=== PATIENT | female | born 1955 | race Caucasian/White ===

== ENCOUNTER → 2017-11-14 14:55 | Outpatient (CLI) | payer BC, SELFPAY ==
[2017-11-14 16:32] LABS: AST(SGOT) 44 U/L (15-37); Alanine Aminotransfer ALT/SGPT 61 U/L (13-56); Alkaline Phosphatase 67 U/L (45-117); Anion Gap 4 (5-15); BUN 15 mg/dL (7-18); BUN/Creat Ratio 17.1 RATIO (10-20); Calcium,Total 9.1 mg/dL (8.5-10.1); Chloride 104 mmol/L (98-107); Cholesterol 217 mg/dL (200); Creatinine, Serum 0.88 mg/dL (0.55-1.02); EST Glomerular Filtration Rate 70 mL/min (>60); Est Glom Filt Rate - Afr Amer 85 mL/min (>60); Globulin 4.1 g/dL (2.2-4.2); Glucose 99 mg/dL (74-106); High Density Lipoprotein 42 mg/dL; Potassium 4.1 mmol/L (3.5-5.1); Protein, Total 8.1 g/dL (6.4-8.2); Sodium Level 138 mmol/L (136-145); Triglycerides 252 mg/dL; Very Low Density Lipoprotein 50 mg/dL (5-40)
== END ==
PROVIDERS: Family Provider Family Medicine; PCP Family Medicine; Visit Provider Family Medicine
DX: I10 Essential (primary) hypertension (principal); E78.5 Hyperlipidemia, unspecified
CPT/HCPCS: 36415; 80053; 80061

== ENCOUNTER → 2017-12-10 12:43 | Outpatient (CLI) | payer BC, SELFPAY ==
[2017-12-10 14:03] LABS: Hemoglobin A1c 6.9 % (4.2-6.3)
== END ==
PROVIDERS: Family Provider Family Medicine; PCP Family Medicine; Visit Provider Family Medicine
DX: R73.09 Other abnormal glucose (principal)
CPT/HCPCS: 36415; 83036

== ENCOUNTER 2018-01-02 14:47 | Outpatient (RCR) | payer BC, SELFPAY | END 2018-01-24 23:59 | LOC: DC 14:47 | PROVIDERS: Family Provider Family Medicine; PCP Family Medicine; Visit Provider Family Medicine | DX: E11.9 Type 2 diabetes mellitus without complications (principal); Z71.3 Dietary counseling and surveillance; E66.9 Obesity, unspecified; Z68.30 Body mass index [BMI] 30.0-30.9, adult | CPT/HCPCS: 97802; G0108 ==

== ENCOUNTER 2018-02-12 08:36 | Outpatient (RCR) | payer BC, SELFPAY | END 2018-02-23 23:59 | LOC: DC 08:36 | PROVIDERS: Family Provider Family Medicine; PCP Family Medicine; Visit Provider Family Medicine | DX: E66.9 Obesity, unspecified (principal); E11.9 Type 2 diabetes mellitus without complications; Z71.3 Dietary counseling and surveillance; Z68.30 Body mass index [BMI] 30.0-30.9, adult | CPT/HCPCS: 97803 ==

== ENCOUNTER → 2018-02-19 13:45 | Outpatient (CLI) | payer BC, SELFPAY ==
[2018-02-19 15:58] LABS: Hemoglobin A1c 5.8 % (4.2-6.3)
== END ==
PROVIDERS: Family Provider Family Medicine; PCP Family Medicine; Referring Provider Family Medicine; Visit Provider Family Medicine
DX: E11.9 Type 2 diabetes mellitus without complications (principal)
CPT/HCPCS: 36415; 83036

== ENCOUNTER → 2018-11-05 08:56 | Outpatient (CLI) | payer BC, SELFPAY ==
[2018-11-04 14:02] VITALS: BMI 30.2
[2018-11-05 13:11] LABS: ALB/GLOB Ratio 0.9 RATIO (0.9-2.4); AST(SGOT) 27 U/L (15-37); Alanine Aminotransfer ALT/SGPT 43 U/L (13-56); Albumin, Serum 3.7 g/dL (3.2-5.0); Alkaline Phosphatase 63 U/L (45-117); Anion Gap 8 (5-15); BUN 11 mg/dL (7-18); Calcium,Total 9.1 mg/dL (8.5-10.1); Chloride 103 mmol/L (98-107); Cholesterol 189 mg/dL (200); Creatinine, Serum 0.92 mg/dL (0.55-1.02); EST Glomerular Filtration Rate 66 mL/min (>60); Est Glom Filt Rate - Afr Amer 80 mL/min (>60); Globulin 3.9 g/dL (2.2-4.2); Glucose 99 mg/dL (74-106); High Density Lipoprotein 38 mg/dL; Potassium 3.9 mmol/L (3.5-5.1); Protein, Total 7.6 g/dL (6.4-8.2); Sodium Level 141 mmol/L (136-145); Triglycerides 182 mg/dL; Very Low Density Lipoprotein 36 mg/dL (5-40)
== END ==
PROVIDERS: Family Provider Family Medicine; PCP Family Medicine; Visit Provider Family Medicine
DX: E78.5 Hyperlipidemia, unspecified (principal); K76.0 Fatty (change of) liver, not elsewhere classified
CPT/HCPCS: 36415; 80053; 80061

== ENCOUNTER → 2020-01-06 14:00 | Outpatient (CLI) | payer BC, SELFPAY ==
[2020-01-06 13:07] VITALS: BMI 30.2
[2020-01-06 15:55] LABS: AST(SGOT) 46 U/L (15-37); Alanine Aminotransfer ALT/SGPT 81 U/L (13-56); Albumin, Serum 3.9 g/dL (3.2-5.0); Alkaline Phosphatase 62 U/L (45-117); Anion Gap 7 (5-15); BUN 12 mg/dL (7-18); BUN/Creat Ratio 13.6 RATIO (10-20); Calcium,Total 9.2 mg/dL (8.5-10.1); Chloride 103 mmol/L (98-107); Cholesterol 217 mg/dL (200); Creatinine, Serum 0.88 mg/dL (0.55-1.02); EST Glomerular Filtration Rate 69 mL/min (>60); Est Glom Filt Rate - Afr Amer 84 mL/min (>60); Globulin 3.8 g/dL (2.2-4.2); Glucose 88 mg/dL (74-106); High Density Lipoprotein 39 mg/dL; Potassium 4.2 mmol/L (3.5-5.1); Protein, Total 7.7 g/dL (6.4-8.2); Sodium Level 139 mmol/L (136-145); Triglycerides 216 mg/dL; Uric Acid 9.8 mg/dL (2.6-6.0); Very Low Density Lipoprotein 43 mg/dL (5-40)
== END ==
PROVIDERS: PCP Family Medicine; Referring Provider Family Medicine; Visit Provider Family Medicine
DX: K76.0 Fatty (change of) liver, not elsewhere classified (principal); E78.5 Hyperlipidemia, unspecified; M19.90 Unspecified osteoarthritis, unspecified site
CPT/HCPCS: 36415; 80053; 80061; 84550

== ENCOUNTER → 2020-01-27 12:05 | Outpatient (CLI) | payer BC, SELFPAY ==
[2020-01-06 13:07] VITALS: BMI 30.2
--- NOTE | 2020-01-27 12:05 | BI_ITS ---
MAMMOGRAPHY - BILATERAL SCREENING REASON FOR EXAM: Female, 64 years old. Routine annual screening examination. PERTINENT HISTORY: Non-contributory. TECHNIQUE: Digital bilateral breast rodrigo (3D mammographic acquisition) in the CC and MLO projections. 2-D mediolateral oblique (MLO) and craniocaudad (CC) views of both breasts were obtained. CAD: Full Field Digital Mammography with Computer Added Detection was performed. COMPARISON: No comparison mammograms available at this time. If any prior films become available, an addendum to this report can be generated. FINDINGS: Breast Composition: There are scattered areas of fibroglandular density. There are no dominant masses or suspicious calcifications. Multiple small well-defined nodules are seen in the upper outer quadrant of the right breast. Central notch is seen suggestive of a small lymph nodes. Similar appearing nodules are also seen in the axillary region of the left breast. Correlation with ultrasound is recommended for further evaluation. No other significant abnormalities are identified. BI/SCREEN MAMM (CAD) W/RODRIGO BILAT IMPRESSION: Findings suggestive of a benign appearing lymph nodes in the upper outer aspects of both breasts as described. Correlation with ultrasound is recommended for further evaluation. ASSESSMENT CATEGORY: BIRADS Category 0: Incomplete. Need additional imaging evaluation. A letter regarding these results will be sent to the patient by the facility within 30 days. Approximately 10% of breast cancers are not detected by mammography. A normal mammogram should not delay biopsy of a clinically suspicious abnormality. [id number] Electronically Signed: Ziyad Mckinley, at 13:00 EDT , Service support ,
== END ==
PROVIDERS: PCP Family Medicine; Referring Provider Family Medicine; Visit Provider Family Medicine
DX: Z12.31 Encounter for screening mammogram for malignant neoplasm of breast (principal)
CPT/HCPCS: 77063; 77067

== ENCOUNTER → 2020-02-09 11:42 | Outpatient (CLI) | payer BC, SELFPAY ==
[2020-01-06 13:07] VITALS: BMI 30.2
--- NOTE | 2020-02-09 13:18 | US_ITS ---
STUDY: ULTRASOUND BREAST - RIGHT REASON FOR EXAM: Female, 64 years old. Abnormal screening mammogram. TECHNIQUE: Axial and longitudinal images of the RIGHT breast were performed with a high resolution ultrasound transducer. # OF IMAGES: 171 COMPARISON: Comparison is made with prior study dated 01/27/2020. FINDINGS: RIGHT Breast: Multiple small benign appearing lymph nodes are seen in the right axillary region and upper outer quadrant of the right breast noted the largest measures 6 mm x 7 mm x 3 mm. IMPRESSION: Multiple small benign appearing axillary lymph nodes. ASSESSMENT CATEGORY: BIRADS Category 2: Benign. A letter regarding these results will be sent to the patient by the facility within 30 days. Electronically Signed: Ziyad Mckinley, at 10:08 EDT , Service support , STUDY: ULTRASOUND BREAST - LEFT REASON FOR EXAM: Female, 64 years old. Abnormal screening mammogram. TECHNIQUE: Axial and longitudinal images of the LEFT breast were performed with a high resolution ultrasound transducer. # OF IMAGES: 171 COMPARISON: Comparison is made with prior mammogram dated 01/27/2020. FINDINGS: LEFT Breast: Multiple small axillary lymph nodes are seen. The largest measures 1.1 cm x 0.9 cm x 0.4 cm. US/Breast Limited Unilateral IMPRESSION: Multiple small benign-appearing axillary lymph nodes. ASSESSMENT CATEGORY: BIRADS Category 2: Benign. A letter regarding these results will be sent to the patient by the facility within 30 days. Electronically Signed: Ziyad Mckinley, at 10:08 EDT , Service support ,
[2020-02-09 15:43] LABS: Uric Acid 5.2 mg/dL (2.6-6.0)
== END ==
PROVIDERS: PCP Family Medicine; Referring Provider Family Medicine; Visit Provider Family Medicine
DX: N63.21 Unspecified lump in the left breast, upper outer quadrant (principal); N63.11 Unspecified lump in the right breast, upper outer quadrant
CPT/HCPCS: 36415; 76641; 76642; 84550

== ENCOUNTER → 2020-03-16 15:14 | Outpatient (CLI) | payer BC, SELFPAY ==
[2020-03-16 14:39] VITALS: BMI 29.2
[2020-03-16 17:17] LABS: ALB/GLOB Ratio 0.9 RATIO (0.9-2.4); AST(SGOT) 66 U/L (15-37); Alanine Aminotransfer ALT/SGPT 122 U/L (13-56); Albumin, Serum 3.8 g/dL (3.2-5.0); Alkaline Phosphatase 63 U/L (45-117); Anion Gap 3 (5-15); BUN 12 mg/dL (7-18); BUN/Creat Ratio 10.6 RATIO (10-20); Calcium,Total 9.9 mg/dL (8.5-10.1); Chloride 102 mmol/L (98-107); Creatinine, Serum 1.13 mg/dL (0.55-1.02); EST Glomerular Filtration Rate 52 mL/min (>60); Est Glom Filt Rate - Afr Amer 63 mL/min (>60); Globulin 4.2 g/dL (2.2-4.2); Glucose 88 mg/dL (74-106); Potassium 3.9 mmol/L (3.5-5.1); Sodium Level 139 mmol/L (136-145)
== END ==
PROVIDERS: PCP Family Medicine; Referring Provider Nurse Practitioner Family; Visit Provider Nurse Practitioner Family
DX: R79.89 Other specified abnormal findings of blood chemistry (principal)
CPT/HCPCS: 36415; 80053

== ENCOUNTER → 2020-04-19 08:58 | Outpatient (CLI) | payer BC, SELFPAY ==
[2020-03-16 14:39] VITALS: BMI 29.2
[2020-04-19 12:22] LABS: ALB/GLOB Ratio 0.9 RATIO (0.9-2.4); AST(SGOT) 48 U/L (15-37); Alanine Aminotransfer ALT/SGPT 98 U/L (13-56); Albumin, Serum 3.6 g/dL (3.2-5.0); Alkaline Phosphatase 64 U/L (45-117); Anion Gap 4 (5-15); BUN 12 mg/dL (7-18); BUN/Creat Ratio 11.8 RATIO (10-20); Calcium,Total 9.3 mg/dL (8.5-10.1); Chloride 105 mmol/L (98-107); Creatinine, Serum 1.02 mg/dL (0.55-1.02); EST Glomerular Filtration Rate 58 mL/min (>60); Est Glom Filt Rate - Afr Amer 71 mL/min (>60); Globulin 3.8 g/dL (2.2-4.2); Glucose 130 mg/dL (74-106); Potassium 3.7 mmol/L (3.5-5.1); Protein, Total 7.4 g/dL (6.4-8.2); Sodium Level 139 mmol/L (136-145)
== END ==
PROVIDERS: PCP Family Medicine; Referring Provider Nurse Practitioner Family; Visit Provider Nurse Practitioner Family
DX: K76.0 Fatty (change of) liver, not elsewhere classified (principal)
CPT/HCPCS: 36415; 80053

== ENCOUNTER → 2020-07-27 14:29 | Outpatient (CLI) | payer BC, SELFPAY ==
[2020-07-27 13:53] VITALS: BMI 29.2
[2020-07-27 17:28] LABS: ALB/GLOB Ratio 1.1 RATIO (0.9-2.4); AST(SGOT) 44 U/L (15-37); Alanine Aminotransfer ALT/SGPT 83 U/L (13-56); Alkaline Phosphatase 73 U/L (45-117); Anion Gap 6 (5-15); BUN 12 mg/dL (7-18); BUN/Creat Ratio 13.6 RATIO (10-20); Calcium,Total 9.5 mg/dL (8.5-10.1); Chloride 104 mmol/L (98-107); Creatinine, Serum 0.88 mg/dL (0.55-1.02); EST Glomerular Filtration Rate 69 mL/min (>60); Est Glom Filt Rate - Afr Amer 84 mL/min (>60); Globulin 3.8 g/dL (2.2-4.2); Glucose 90 mg/dL (74-106); Protein, Total 7.8 g/dL (6.4-8.2); Sodium Level 140 mmol/L (136-145)
== END ==
PROVIDERS: PCP Family Medicine; Referring Provider Family Medicine; Visit Provider Family Medicine
DX: I10 Essential (primary) hypertension (principal)
CPT/HCPCS: 36415; 80053

== ENCOUNTER → 2020-08-03 15:58 | Outpatient (CLI) | payer BC, SELFPAY ==
--- NOTE | 2020-08-03 | LES_PTH ---
PATIENT: MOI BLACK LOC: [facility] U#:[id number] AGE/SX: 69/F ROOM: RE08/03/[address]: Dr. Oscar Ordoñez DO : 1955 BED: DIS: SPEC #: [id number] RECD: 08/03/20 17:02 STATUS: PATO MO #: [id number] TICO: 08/03/20 00:[address]: Oscar Ordoñez DEPT: SURGICAL PATHOLOGY RECD BY: Elliott Vallecillo Tissues: Skin of foot, NOS Procedures: Surgery Specimen Level IV HEADER OPERATION: Skin excision PRE-OP DIAGNOSIS: Left great toe skin lesion TISSUE SUBMITTED: Left great toe skin lesion MICROSCOPIC DIAGNOSIS Left great toe skin lesion, excision: Extensive hyperkeratosis, parakeratosis and epithelial hyperplasia. Negative for malignancy. SJ:andrew 08/05/2020 COMMENT Correlation with clinical findings and appropriate follow up are necessary. Case has been reviewed in consultation with Dr. Walker who concurs with the above diagnosis. IDC:AM MICROSCOPIC DESCRIPTION Slides are reviewed. GROSS DESCRIPTION Received in fixative is one container labeled with the patient's name and designated left great toe. The specimen consists of a light rose shave biopsy of skin measuring 0.7 cm in diameter and <0.1 cm in thickness. The specimen is inked, serially sectioned and totally submitted in one cassette. / KIM:andrew 08/04/20 TC:3 CPT: 25605
== END ==
PROVIDERS: PCP Family Medicine; Referring Provider Family Medicine; Visit Provider Family Medicine
DX: L98.9 Disorder of the skin and subcutaneous tissue, unspecified (principal)
CPT/HCPCS: 88305

== ENCOUNTER → 2021-01-26 10:53 | Outpatient (CLI) | payer BC, SELFPAY ==
[2021-01-26 12:28] LABS: AST(SGOT) 87 U/L (15-37); Alanine Aminotransfer ALT/SGPT 156 U/L (13-56); Albumin, Serum 3.8 g/dL (3.2-5.0); Alkaline Phosphatase 65 U/L (45-117); Bilirubin, Direct 0.13 mg/dL (0.00-0.30); Globulin 3.8 g/dL (2.2-4.2); Protein, Total 7.6 g/dL (6.4-8.2); Uric Acid 6.4 mg/dL (2.6-6.0)
== END ==
PROVIDERS: PCP Family Medicine; Referring Provider Family Medicine; Visit Provider Family Medicine
DX: K76.0 Fatty (change of) liver, not elsewhere classified (principal); M10.9 Gout, unspecified
CPT/HCPCS: 36415; 80076; 84550

== ENCOUNTER → 2021-12-15 | Outpatient (CLI) | payer BC, SELFPAY ==
--- NOTE | 2021-12-15 14:57 | RAD_ITS ---
EXAM: XR LUMBOSACRAL SPINE, 2 OR 3 VIEWS CLINICAL INDICATION: Low back pain TECHNIQUE: Frontal and lateral views of the lumbar spine and sacrum. This report was created using [employer] report generation technology. COMPARISON: None. FINDINGS: VERTEBRAE: Multilevel bilateral vertebral facet arthropathy in the lower lumbar spine. Preserved vertebral body height. No fracture. No spondylolisthesis. Preservation of the normal lumbar lordosis. DISC SPACES: Mild disc space narrowing L5-S1. VASCULATURE: Diffuse aortic calcifications. GASTROINTESTINAL TRACT: Unremarkable as visualized. Included bowel gas pattern is non-obstructive. OTHER FINDINGS: Small calcified leiomyoma. RAD/Lumbar Spine 2 or 3 Views IMPRESSION: 1. Mild disc space narrowing L5-S1. 2. Multilevel bilateral vertebral facet arthropathy in the lower lumbar spine. Electronically Signed: Liam Gonzalez MD at 0:21 EDT ,
--- NOTE | 2021-12-15 14:57 | RAD_ITS ---
EXAM: XR LEFT KNEE COMPLETE, 4 OR MORE VIEWS CLINICAL INDICATION: Left knee pain. TECHNIQUE: Four or more views of the left knee. This report was created using [employer] report generation technology. COMPARISON: None. FINDINGS: BONES/JOINTS: Moderate medial left knee joint narrowing. No acute fracture. No subluxation. Normal alignment. No sclerotic or destructive changes observed. SOFT TISSUES: Unremarkable. No soft tissue swelling or gas. No radiopaque foreign body. RAD/Knee 4 or More Views IMPRESSION: Moderate medial left knee joint narrowing. Electronically Signed: Liam Gonzalez MD at 0:21 EDT ,
--- NOTE | 2021-12-15 14:57 | RAD_ITS ---
EXAM: XR LEFT HIP WITH PELVIS WHEN PERFORMED, 4 OR MORE VIEWS CLINICAL INDICATION: Hip pain. TECHNIQUE: Four or more views of the left hip with pelvis when performed. This report was created using [employer] report generation technology. COMPARISON: None. FINDINGS: BONES/JOINTS: Normal left hip. No displaced fracture. No destructive or sclerotic lesions. Note that overlapping bowel shadows may however obscure fine detail. Sacroiliac joint is unremarkable. No widening of the pubic symphysis. SOFT TISSUES: Small calcified leiomyoma in the pelvis. No soft tissue swelling or gas. RAD/HIP, UNI W/ Pelvis 2-3 Views IMPRESSION: Normal left hip. Electronically Signed: Liam Gonzalez MD at 0:19 EDT ,
== END | disposition home or self-care (01) ==
LOC: MTRAD 14:57
PROVIDERS: PCP Family Medicine; Referring Provider Physician Assistant; Visit Provider Physician Assistant
DX: M25.552 Pain in left hip (principal); M25.562 Pain in left knee; M54.50 Low back pain, unspecified
CPT/HCPCS: 72100; 73502; 73503; 73564

== ENCOUNTER → 2022-03-14 | Outpatient (CLI) | payer BC, SELFPAY ==
[2022-03-14 17:59] LABS: ALB/GLOB Ratio 0.9 RATIO (0.9-2.4); AST(SGOT) 90 U/L (15-37); Alanine Aminotransfer ALT/SGPT 117 U/L (13-56); Albumin, Serum 3.6 g/dL (3.2-5.0); Alkaline Phosphatase 68 U/L (45-117); Anion Gap 8 (5-15); BUN 14 mg/dL (7-18); BUN/Creat Ratio 11.6 RATIO (10-20); Calcium,Total 9.4 mg/dL (8.5-10.1); Chloride 103 mmol/L (98-107); Cholesterol 243 mg/dL (200); Creatinine, Serum 1.21 mg/dL (0.55-1.02); EST Glomerular Filtration Rate 48 mL/min (>60); Est Glom Filt Rate - Afr Amer 58 mL/min (>60); Glucose 139 mg/dL (74-106); High Density Lipoprotein 36 mg/dL; Potassium 3.8 mmol/L (3.5-5.1); Protein, Total 7.6 g/dL (6.4-8.2); Sodium Level 138 mmol/L (136-145); Thyroid Stim Hormone (TSH) 1.26 uIU/mL (0.358-3.74); Triglycerides 405 mg/dL
== END | disposition home or self-care (01) ==
LOC: BIMLAB 16:13
PROVIDERS: PCP Family Medicine; Referring Provider Family Medicine; Visit Provider Family Medicine
DX: E11.9 Type 2 diabetes mellitus without complications (principal); L65.9 Nonscarring hair loss, unspecified
CPT/HCPCS: 36415; 80053; 80061; 84443

== ENCOUNTER → 2022-06-19 | Outpatient (CLI) | payer BC, SELFPAY ==
[2022-06-19 12:44] LABS: ALB/GLOB Ratio 0.9 RATIO (0.9-2.4); AST(SGOT) 64 U/L (15-37); Alanine Aminotransfer ALT/SGPT 98 U/L (13-56); Albumin, Serum 3.9 g/dL (3.2-5.0); Alkaline Phosphatase 61 U/L (45-117); Anion Gap 7 (5-15); BUN 11 mg/dL (7-18); BUN/Creat Ratio 11.8 RATIO (10-20); Calcium,Total 9.7 mg/dL (8.5-10.1); Chloride 102 mmol/L (98-107); Creatinine, Serum 0.93 mg/dL (0.55-1.02); EST Glomerular Filtration Rate 64 mL/min (>60); Est Glom Filt Rate - Afr Amer 78 mL/min (>60); Globulin 4.4 g/dL (2.2-4.2); Glucose 129 mg/dL (74-106); Potassium 4.2 mmol/L (3.5-5.1); Protein, Total 8.3 g/dL (6.4-8.2); Sodium Level 138 mmol/L (136-145)
[2022-06-19 13:04] LABS: Hemoglobin A1c 7.7 % (3.8-5.6)
== END | disposition home or self-care (01) ==
LOC: BIMLAB 09:38
PROVIDERS: PCP Family Medicine; Referring Provider Family Medicine; Visit Provider Family Medicine
DX: R73.03 Prediabetes (principal)
CPT/HCPCS: 36415; 80053; 83036

== ENCOUNTER → 2023-04-11 | Outpatient (CLI) | payer MEDICARE, BC, SELFPAY ==
[2023-04-11 12:48] LABS: ALB/GLOB Ratio 0.9 RATIO (0.9-2.4); AST(SGOT) 39 U/L (15-37); Alanine Aminotransfer ALT/SGPT 57 U/L (13-56); Albumin, Serum 3.8 g/dL (3.2-5.0); Alkaline Phosphatase 60 U/L (45-117); Anion Gap 6 (5-15); BUN 16 mg/dL (7-18); BUN/Creat Ratio 15.7 RATIO (10-20); Calcium,Total 9.8 mg/dL (8.5-10.1); Chloride 103 mmol/L (98-107); Cholesterol 241 mg/dL (200); Creatinine, Serum 1.02 mg/dL (0.55-1.02); EST Glomerular Filtration Rate 58 mL/min (>60); Est Glom Filt Rate - Afr Amer 70 mL/min (>60); Globulin 4.4 g/dL (2.2-4.2); Glucose 110 mg/dL (74-106); High Density Lipoprotein 42 mg/dL; Potassium 4.7 mmol/L (3.5-5.1); Protein, Total 8.2 g/dL (6.4-8.2); Sodium Level 137 mmol/L (136-145); Triglycerides 258 mg/dL; Very Low Density Lipoprotein 52 mg/dL (5-40)
== END | disposition home or self-care (01) ==
PROVIDERS: PCP Family Medicine; Referring Provider Family Medicine; Visit Provider Family Medicine
DX: E78.5 Hyperlipidemia, unspecified (principal); I10 Essential (primary) hypertension
CPT/HCPCS: 36415; 80053; 80061

== ENCOUNTER → 2023-04-24 | Outpatient (CLI) | payer MEDICARE, BC, SELFPAY ==
--- NOTE | 2023-04-24 13:40 | BI_ITS ---
MAMMOGRAPHY - BILATERAL SCREENING REASON FOR EXAM: Female, 67 years old. Routine annual screening examination. PERTINENT HISTORY: Non-contributory. TECHNIQUE: Digital bilateral breast rodrigo (3D mammographic acquisition) in the CC and MLO projections. 2-D mediolateral oblique (MLO) and craniocaudad (CC) views of both breasts were obtained. CAD: Full Field Digital Mammography with Computer Added Detection was performed. COMPARISON: Comparison is made with prior examination January 27, 2020. FINDINGS: Breast Composition: There are scattered areas of fibroglandular density. There are no dominant masses or suspicious calcifications. Stable small well-defined nodules seen in the upper outer quadrant of the right breast. Similar appearing smaller nodules are also seen in the axillary region of the left breast. These were demonstrated to be small lymph nodes on prior sonogram. No other significant abnormalities are identified. There has been no significant change since the prior study. BI/SCRN MAMM (CAD)W/RODRIGO BILAT IMPRESSION: Stable bilateral screening mammogram. Yearly follow-up mammogram recommended. (A) ASSESSMENT CATEGORY: BIRADS Category 2: Benign. A letter regarding these results will be sent to the patient by the facility within 30 days. Approximately 10% of breast cancers are not detected by mammography. A normal mammogram should not delay biopsy of a clinically suspicious abnormality. [id number] Electronically Signed: Ziyad Mckinley MD at 11:00 EST ,
== END | disposition home or self-care (01) ==
LOC: OPBI 13:40
PROVIDERS: PCP Family Medicine; Referring Provider Family Medicine; Visit Provider Family Medicine
DX: Z12.31 Encounter for screening mammogram for malignant neoplasm of breast (principal)
CPT/HCPCS: 77063; 77067

== ENCOUNTER → 2024-01-28 | Outpatient (CLI) | payer MEDICARE, BC, SELFPAY ==
[2024-01-28 16:54] LABS: ALB/GLOB Ratio 0.9 RATIO (0.9-2.4); AST(SGOT) 30 U/L (15-37); Alanine Aminotransfer ALT/SGPT 44 U/L (13-56); Albumin, Serum 3.6 g/dL (3.2-5.0); Alkaline Phosphatase 60 U/L (45-117); Anion Gap 6 (5-15); BUN 12 mg/dL (7-18); BUN/Creat Ratio 12.9 RATIO (10-20); Calcium,Total 9.8 mg/dL (8.5-10.1); Chloride 104 mmol/L (98-107); Cholesterol 247 mg/dL (200); Creatinine, Serum 0.93 mg/dL (0.55-1.02); EST Glomerular Filtration Rate 64 mL/min (>60); Est Glom Filt Rate - Afr Amer 78 mL/min (>60); Globulin 3.8 g/dL (2.2-4.2); Glucose 133 mg/dL (74-106); High Density Lipoprotein 40 mg/dL; Protein, Total 7.4 g/dL (6.4-8.2); Sodium Level 137 mmol/L (136-145); Triglycerides 381 mg/dL; Very Low Density Lipoprotein 76 mg/dL (5-40)
== END | disposition home or self-care (01) ==
LOC: BIMLAB 15:16
PROVIDERS: PCP Family Medicine; Visit Provider Family Medicine
DX: I10 Essential (primary) hypertension (principal)
CPT/HCPCS: 36415; 80053; 80061

== ENCOUNTER → 2025-05-11 | Outpatient (CLI) | payer MEDICARE, BC, SELFPAY ==
[2025-05-11 12:33] LABS: AST(SGOT) 77 U/L (<=31); Alanine Aminotransfer ALT/SGPT 104 U/L (<=34); Albumin, Serum 4.3 g/dL (3.4-4.8); Alkaline Phosphatase 73 U/L (35-104); Anion Gap 11 (5-15); BUN 8 mg/dL (4-19); BUN/Creat Ratio 9.7 RATIO (10-20); Calcium,Total 9.8 mg/dL (7.6-11.0); Carbon Dioxide 27.0 mmol/L (21.0-32.0); Chloride 99 mmol/L (98-108); Cholesterol 200 mg/dL (<=200); Globulin 3.5 g/dL (2.2-4.2); Glucose 161 mg/dL (70-99); Low Density Lipoprotein Calc. 118 mg/dL; Potassium 3.9 mmol/L (3.3-5.1); Triglycerides 235 mg/dL; Uric Acid 4.4 mg/dL (2.6-6.0); Very Low Density Lipoprotein 47 mg/dL (5-40); cholesterol:hdl ratio screen 4.93
== END | disposition home or self-care (01) ==
LOC: MTLAB 09:48
PROVIDERS: PCP Family Medicine; Referring Provider Family Medicine; Visit Provider Family Medicine
DX: M10.9 Gout, unspecified (principal); E11.9 Type 2 diabetes mellitus without complications
CPT/HCPCS: 80053; 80061; 83036; 84550

== ENCOUNTER → 2025-05-26 | Outpatient (CLI) | payer MEDICARE, BC, SELFPAY ==
--- NOTE | 2025-05-26 08:45 | US_ITS ---
PROCEDURE: BREAST LIMITED UNILATERAL 05/26/2025 REASON FOR EXAM: F, Age 69 y/o , BREAST LUMP Right breast palpable mass. Inconclusive mammogram. Right breast masses. Evaluate. COMPARISON: Mammogram studies dated 05/26/2025 and 04/24/2023. TECHNIQUE: Procedure Code: USBRSTLIMIT Modality: US Procedure: BREAST LIMITED UNILATERAL FINDINGS: There is a solid, hypoechoic, heterogeneous, spiculated appearing mass in the right breast extending from the 11 o'clock to 12 o'clock position, 6 cm from nipple measuring 3.3 x 3.1 x 2.7 cm. This mass does produce posterior shadowing. The mass does correlate to the palpable abnormality and the mass seen on the mammogram. The mass is taller than it is wide. The mass is highly worrisome for malignancy. Biopsy is warranted. There is a solid hypoechoic mass in the right breast at the 10 o'clock, 11 cm from nipple position measuring 10 x 7 x 6 mm. This has a small echogenic component. The mass is most compatible with an intramammary lymph node and does correlate to a mass seen on the mammogram. The cortex is thick. There is blood flow to the mass. The mass appears to represent an intramammary lymph node that possibly has tumor within it. A biopsy is warranted. There is a hypoechoic mass in the right breast at the 11 o'clock, 11 cm from the nipple position measuring 4 x 3 x 3 mm. This has an echogenic component. There is blood flow to the mass. It is most compatible with an intramammary lymph node and does correlate to a mass seen on the mammogram. If either of the other 2 areas biopsied are positive for malignancy, this mass should also be removed at the time of surgery. US/Breast Limited Unilateral IMPRESSION: There is a malignant-appearing mass and an abnormal appearing intramammary lymp h node and a smaller more benign-appearing intramammary lymph node. Biopsy is warranted as described above. BI-RADS 5: HIGHLY SUGGESTIVE OF MALIGNANCY. RECOMMENDATION: Biopsy Recommended Reading Location: [id number]
--- NOTE | 2025-05-26 09:00 | BI_ITS ---
EXAM: DIAG MAMM W/CAD, BILAT N/A CLINICAL HISTORY: F, Age 69 y/o , BREAST MASS right breast palpable mass which she noted 5 weeks ago. She does have a maternal aunt who was diagnosed with breast cancer. TECHNIQUE: Procedure Code: [id number] Modality: MG Procedure: DIAG MAMM W/CAD, BILAT. COMPARISON: Prior exam(s) dated 04/24/2023 and 01/27/2020. FINDINGS: TISSUE DENSITY: There are scattered areas of fibroglandular density. Bilateral Breast Mammographic Findings: There is a 2.8 x 4.0 cm dense, irregularly marginated mass in the superior, slightly outer aspect of the right breast which does correlate to the palpable abnormality. Further workup with ultrasound is indicated. There are several masses in the superior outer aspect of the right breast which appear to represent lymph nodes. 1 of which is larger when compared to the prior exam. This larger lymph node measures 12 mm. Further workup with ultrasound will be performed. Benign round calcifications and vascular calcifications are seen in the right breast. Benign-appearing intramammary lymph nodes are seen in the superior outer aspect of the left breast and are similar when compared to the prior studies. Benign vascular calcifications and round microcalcifications are seen in the left breast. No suspicious masses, suspicious cluster of microcalcifications, architectural distortion or secondary sign of malignancy is identified in the left breast. BI/DIAG MAMM W/CAD, BILAT IMPRESSION: There are masses seen in the right breast which will be further worked up ultra sound. The largest of which does correlate to the new palpable abnormality. OVERALL FINAL ASSESSMENT BI-RADS 0: INCOMPLETE - NEED ADDITIONAL IMAGING EVALUATION. RECOMMENDATION: Ultrasound Recommended Additional Recommendation none A letter with findings and recommendations will be mailed to the patient. Reading Location: [id number]
--- OUTSIDE RECORDS SUMMARY | 2025-05-26 09:02 | XMS RPT_ITS | CCD ---
Author Organization [facility] Care Team Providers Care Gastroenterology Teacher Name Role Phone Dr. Oscar Ordoñez Primary Care Provider [phone] Dr. Oscar Ordoñez Referring Provider [phone] LB Vasquez Attending Provider Unavail Dr. Oscar Burgos Attending Provider [phone] Dr. Oscar Ordoñez Primary Care Provider [phone] Dr. Oscar Ordoñez Attending Provider [phone] Dr. Oscar Ordoñez Referring Provider [phone] Dr. Oscar Ordoñez Primary Care Provider [phone] Dr. Oscar Ordoñez Attending Provider [phone] Dr. Oscar Ordoñez Referring Provider [phone] Dr. Oscar Ordoñez DO Primary Care Provider Dr. Oscar Ordoñez DO Attending Provider [phone] [phone] Dr. Oscar Ordoñez DO Referring Provider [phone] [phone] Oscar Ordoñez Attending Unavailable Oscar Ordoñez Referring Unavailable Oscar Ordoñez Primary Care Unavailable Oscar Ordoñez Referring Unavailable Oscar Ordoñez Primary Care Unavailable Judith Bill Attending Unavailable Oscar Ordoñez Attending Unavailable Oscar Ordoñez Primary Care Unavailable Oscar Ordoñez Referring Unavailable Oscar Ordoñez Primary Care Unavailable Oscar Ordoñez Attending Unavailable Allergies Allergy Classification Reported Allergen(s) Allergy Type Date of Onset Reaction(s) Facility (7 sources) Sulfonamides (Antibiotic); Translations: [Sulfa (Sulfonamide Antibiotics)] Allergy to substance 12-15-2021 [facility] Medications Current Medications Medication Drug Class(es) Dates Sig (Normalized) Sig (Original) cetrizine (6 sources) Start: 11-14-2017 cetrizine Acti ve PO November 13, 2017 11:00pm Start: 11-14-2017 cetrizine Acti ve PO November 14, 2017 12:00am hydroCHLOROthiazide 25 mg / lisinopril 20 mg oral tablet (20 sources) Thiazide Diuretic, Angiotensin Converting Enzyme Inhibitor Start: 11-14-2017 End: 03-24-2024 Lisinopril-Hydrochlorothiazi de 20-25 mg tablet Active 1 {tbl} PO DAILY March 24, 2024 8:30am Start: 11-14-2017 End: 03-26-2023 take 1 tablet by mouth once daily Lisinopril-Hydrochlorothiazide Discontin ued 1 TABLET PO daily March 14, 2022 2:50pm March 26, 2023 10:52am metFORMIN hydrochloride 500 mg oral tablet (20 sources) Biguanide Start: 12-10-2017 End: 03-24-2024 take 1 tablet by mouth once daily Metformin 500 mg tablet Active 500 mg PO DAILY March 24, 2024 8:30am metroNIDAZOLE 7.5 mg/ml topical cream (20 sources) Nitroimidazole Antimicrobial Start: 11-11-2024 Metronidazole 0.75 % cream Active 1 NMA TOPICAL TWICE A DAY November 11, 2024 1:05pm Start: 09-25-2022 End: 11-11-2024 Metronidazole 0.75 % cream D iscontinued 1 NMA TOPICAL TWICE A DAY September 25, 2022 11:18am November 11, 2024 1:05pm Start: 01-26-2021 End: 09-25-2022 Metronidazole 0.75 % cream D iscontinued 1 NMA TOPICAL TWICE A DAY January 26, 2021 10:12am September 25, 2022 11:21am Start: 01-06-2020 End: 01-26-2021 Metronidazole 0.75 % cream D iscontinued 1 NMA TOPICAL TWICE A DAY January 06, 2020 1:32pm January 26, 2021 10:14am Start: 11-04-2018 End: 01-06-2020 Metronidazole 0.75 % cream D iscontinued 1 NMA TOPICAL TWICE A DAY November 04, 2018 12:00am January 06, 2020 1:32pm Start: 11-04-2018 End: 09-25-2022 Metronidazole Discontinued 1 APPLIC TOPICAL TWICE A DAY January 26, 2021 9:12am September 25, 2022 10:21am rosuvastatin calcium 10 mg oral tablet (2 sources) HMG-CoA Reductase Inhibitor Start: 01-29-2024 End: 07-21-2024 take 1 tablet by mouth once daily Rosuvastatin 10 mg tablet Active 10 mg PO daily July 21, 2024 11:02am vitamin e 90 mg oral capsule (6 sources) Start: 11-14-2017 take 2 capsules by mouth once daily Vitamin E 200 unit capsule Active 400 U PO daily November 14, 2017 12:00am Start: 11-14-2017 take 400 [IU] by mouth once da serafin Vitamin E Active 400 UNIT PO daily November 13, 2017 11:00pm Completed/Discontinued Medications Medication Drug Class(es) Dates Sig (Normalized) Sig (Original) allopurinol 100 mg oral tablet (20 sources) Xanthine Oxidase Inhibitor Start: 03-16-2020 End: 03-14-2022 take 1 tablet by mouth once daily Allopurinol 100 mg tablet Discontinued 100 mg PO DAILY September 19, 2020 9:08am January 26, 2021 10:14am Start: 01-07-2020 End: 03-16-2020 take 1 tablet by mouth once daily Allopurinol 300 mg tablet Discontinued 300 mg PO DAILY January 07, 2020 12:00am March 16, 2020 5:20pm On Hold: None amoxicillin 875 mg oral tablet (1 source) Penicillin-class Antibacterial Start: 05-24-2023 End: 01-28-2024 take 1 tablet by mouth twice daily Amoxicillin 875 mg tablet Discontinued 875 mg PO TWICE A DAY May 24, 2023 1:00am January 28, 2024 2:24pm cholecalciferol 0.025 mg oral capsule (6 sources) Vitamin D Start: 07-27-2020 End: 03-14-2022 take 1 capsule by mouth once daily Cholecalciferol (Vitamin D3) 25 mcg (1,000 unit) capsule Discontinued 25 ug PO DAILY July 27, 2020 1:00am March 14, 2022 3:38pm colchicine 0.6 mg oral tablet (1 source) Start: 05-02-2024 End: 11-11-2024 take 2 tablets by mouth once daily, then take 1 tablet by mouth twice daily, then take 1 tablet by mouth every hour Colchicine 0.6 mg tablet Discontinued 0.6 mg PO TWICE A DAY May 02, 2024 1:00am November 11, 2024 12:59pm -Day 1 take 2 tablets by mouth to start off- then 1 hour later take 1 tablet by mouth -Day 2 take 1 tablet by mouth twice a day until symptoms resolve and then take for an additional 24-48 hours omeprazole 20 mg delayed release oral capsule (20 sources) Proton Pump Inhibitor Start: 03-16-2020 End: 04-14-2024 take 1 capsule by mouth once daily Omeprazole 20 mg capsule,delayed release(DR/EC) Discontinued 20 mg PO DAILY September 19, 2020 9:08am January 26, 2021 10:14am pravastatin sodium 20 mg oral tablet (20 sources) HMG-CoA Reductase Inhibitor Start: 11-14-2017 End: 01-29-2024 take 1 tablet by mouth once daily Pravastatin 20 mg tablet Discontinued 20 mg PO daily April 11, 2023 11:36am January 29, 2024 12:50pm predniSONE 20 mg oral tablet (1 source) Start: 05-02-2024 End: 05-05-2024 take 2 tablets by mouth once daily at mealtime Prednisone 20 mg tablet Discontinued 40 mg PO DAILY 6 May 02, 2024 1:00am May 04, 2024 1:00am May 05, 2024 1:09am take with food spironolactone 25 mg oral tablet (7 sources) Aldosterone Antagonist Start: 06-19-2022 End: 11-11-2024 take 1 tablet by mouth once daily Spironolactone 25 mg tablet Discontinued 25 mg PO DAILY April 11, 2023 11:36am November 11, 2024 12:59pm tetracycline hydrochloride 500 mg oral capsule (3 sources) Tetracycline-class Antimicrobial Start: 04-11-2023 End: 01-28-2024 take 1 capsule by mouth every twelve hours Tetracycline 500 mg capsule Discontinued 500 mg PO Q12H April 11, 2023 1:00am January 28, 2024 2:24pm Problems Active Problems Problem Classification Problem Date Documented Date Episodic/Chronic Diabetes mellitus without complication (12 sources) Diabetes mellitus; Translations: [Type 2 diabetes mellitus without complications] Onset: 01-29-2024 Chronic Disorders of lipid metabolism (13 sources) Hyperlipidemia; Translations: [Hyperlipidemia, unspecified] Onset: 01-29-2024 Chronic Esophageal disorders (6 sources) Gastroesophageal reflux disease; Translations: [Gastro-esophageal reflux disease without esophagitis] 03-16-2020 Chronic Essential hypertension (13 sources) Hypertensive disorder; Translations: [Essential (primary) hypertension] Onset: 02-17-2024 Chronic Gout and other crystal arthropathies (7 sources) Gout; Translations: [Gout, unspecified] 01-06-2020 Chronic Osteoarthritis (6 sources) Arthritis; Translations: [Unspecified osteoarthritis, unspecified site] 11-14-2017 Chronic Other inflammatory condition of skin (7 sources) Rosacea; Translations: [Rosacea, unspecified] 11-04-2018 Chronic Other inflammatory condition of skin (5 sources) Rosacea, unspecified; Translations: [Rosacea] Chronic Other liver diseases (2 sources) Non-alcoholic fatty liver; Translations: [Fatty (change of) liver, not elsewhere classified] Chronic Other liver diseases (5 sources) Fatty (change of) liver, not elsewhere classified; Translations: [Nonalcoholic fatty liver disease] 11-14-2017 Chronic Other non-traumatic joint disorders (2 sources) Pain in unspecified hip; Translations: [Pain in joint, pelvic region and thigh] Episodic Other non-traumatic joint disorders (2 sources) Pain in unspecified knee; Translations: [Pain in joint, lower leg] Episodic Other skin disorders (6 sources) Loss of hair; Translations: [Nonscarring hair loss, unspecified] 03-14-2022 Episodic Other skin disorders (3 sources) Nonscarring hair loss, unspecified; Translations: [Alopecia, unspecified] Episodic Other upper respiratory disease (6 sources) Seasonal allergy; Translations: [Other seasonal allergic rhinitis] 11-14-2017 Chronic Other upper respiratory infections (1 source) Sinusitis; Translations: [Chronic sinusitis, unspecified] 05-24-2023 Chronic Spondylosis; intervertebral disc disorders; other back problems (2 sources) Dorsalgia, unspecified; Translations: [Backache, unspecified] Episodic Viral infection (6 sources) Verruca vulgaris; Translations: [Other viral warts] 08-03-2020 Episodic Past or Other Problems Problem Classification Problem Date Documented Da te Episodic/Chronic Diabetes mellitus without complication (6 sources) Prediabetes; Translations: [Prediabetes] Onset: 01-29-2024 06-19-2022 Episodic Results Test Name Value Interpretation Reference Range Facility Internal Medicine Office Vis ingris 11-11-2024 Internal Medicine Office Visit [facility] [address] [place], [place] [address] OFFICE VISIT Date of Service: 11/11/24 MR#: [id number] Acct: [id number] Name: MOI BLACK Rep #: [id number] : 1955 Provider: Dr. Oscar Diez own, DO Age/Sex: 68/F Location: [facility] Status: Signed Intake Vital Signs 05/02/24 09:09 11/11/24 12:57 Height 5 ft 4 in 5 ft 4 in Weight: 178 lb 178 lb BMI 30.5 30.5 BP 120/80 138/76 H Blood Pressure Location Lt brachial Position Sitting Respiration 18 Pulse 90 68 Pulse Source Monitor Temp 97.7 F L 97.3 F L Temp Source Oral Temporal Pulse Oximetry (%) 97 98 Oxygen Delivery Method room air room air Intake Visit Reasons: 6 M FU Chief Complaint: 6 M FU Is patient in pain?: No Allergies Sulfa (Sulfonamide Antibiotics) Allergy (Severe, Verified 11/11/24 12:58) rash Medications ???Medication ???Instructions ???Recorded ???Confirmed ???Type cetrizine PO 11/14/17 11/11/24 History vitamin E 200 unit capsule 400 unit PO QDAY 11/14/17 11/11/24 History lisinopril 20 1 tab PO DAILY #90 TABLETS 2 4 11/11/24 Rx mg-hydrochlorothiazide 25 mg tablet metformin 500 mg tablet 500 mg PO DAILY #90 TABLETS 11/11/24 Rx omeprazole 20 mg capsule,delayed 20 mg PO DAILY #90 caps 04/14/24 0 11/11/24 Rx release rosuvastatin 10 mg tablet 10 mg PO QDAY #90 tabs 07/21/24 Rx metronidazole 0.75 % topical cream 1 applic topical BID #45 grams 0 11/11/24 11/11/24 Rx Have you fallen in the past year?: No PFSH Medical History Diabetes Fatty liver disease, nonalcoholic GERD (gastroesophageal reflux disease) Hyperlipemia Hypertension Arthritis Seasonal allergies Surgical History Hx of cataract surgery History of loop electrical excision procedure (LEEP) History of tubal ligation History of wisdom tooth extraction History of appendectomy History of tonsillectomy Family History Mother Diabetes COPD (chronic obstructive pulmonary disease) Father Diabetes Hypertension Hyperlipemia Sister Diabetes Grandfather Cancer skin Grandmother Cancer CVA (cerebral vascular accident) Social History Smoking Status: Never smoker alcohol intake: never substance use type: does not use what type of physical activity do you participate in: none HPI HPI Chief Complaint: 6 M FU Details: MOI BLACK, is a 68 F who presents to the office today for a routine checkup. She says she really has not been watching her food intake or her carbohydrate intake at all. Her weight is stayed the same. She is minimally active but does not do any regular exercising. She does complain that her hands are getting stiffer. ROS Const Constitutional: No body ache, chills, excessive sweating, fatigue, fever(s), frequent falls, headache(s), snoring, weight change, sleep problems, abnormal sleep pattern or change in appetite Eyes Eyes: No blurry vision, change in vision, eye pain or Light sensitivity ENT ENT: No abnormal hearing, ear or mastoid pain, tinnitus, nasal congestion, headache(s), neck pain or sore throat Resp Respiratory: No cough, shortness of breath, snoring or wheezing Cardio Cardiology: No chest pain at rest, chest pain with exertion, excessive sweating, shortness of breath, dyspnea on exertion, lightheadedness, orthopnea or palpitations Gastro GI: No abdominal pain, change in bowel habits, constipation, cramping, diarrhea, nausea/dyspepsia or vomiting Genitourinary-Female: No burning urination, painful urination, urinary incontinence, urinary frequency, abnormal vaginal bleeding or pelvic pain Musc Musculoskeletal: No abnormal gait, joint pain, back pain, limited range of motion, neck pain, numbness or tingling Skin Skin: No dry skin, redness, lesions, itchy eyes, rash or wounds Neuro Neurology: No abnormal gait, abnormal hearing, frequent falls, headache(s), memory loss, numbness or tingling Psych Psychiatric: No abnormal sleep pattern, No anxiety, No change in appetite, No irritability, No memory loss and No Thoughts of harming yourself/Others Endo Endocrine: No cold intolerance, excessive sweating, fatigue, flushing, heat intolerance, increased thirst/drinking, increased hunger or weight change Aller/Imm Allergy/Immunologic: No itchy eyes, seasonal allergy symptoms, hives or wheezing Chinmay/Lymp Hematologic/Lymphatic: No easy bleeding, easy bruising, enlarged lymph nodes or other Exam Const General: cooperative and healthy appearing Nutritional Appearance: overweight Orientation: oriented x3 HENMT Head: normal to inspection (more content not included)... Normal [facility] Visit Reporton 1 07-03-2023 Urgent Care Visit Report [facility] [address], [address] [place] [address] OFFICE VISIT Date of Service: 05/02/24 MR#: [id number] Acct: [id number] Name: MOI BLACK Rep #: [id number] : 1955 Provider: ILIA Bill Age/Sex: 68/F Location: [facility] Status: Signed Intake Vital Signs 01/28/24 14:26 05/02/24 08:14 05/02/24 09:09 Height 5 ft 4 in 5 ft 4 in 5 ft 4 in Weight: 174 lb 178 lb BMI 29.8 30.5 BP 120/70 120/80 Blood Pressure Location Lt brachial Position Sitting Respiration 16 Pulse 87 90 Pulse Source Monitor Temp 97.6 F L 97.7 F L Temp Source Temporal Oral Pulse Oximetry (%) 96 97 Oxygen Delivery Method room air room air Intake Visit Reasons: RIGHT FOOT GOUT Accompanied by: Self Is patient in pain?: Yes Pain scale (1-10): 5 Allergies Sulfa (Sulfonamide Antibiotics) Allergy (Severe, Verified 05/02/24 09:14) rash Medications ???Medication ???Instructions ???Recorded ???Confirmed ???Type cetrizine PO 11/14/17 01/28/24 History vitamin E 200 unit capsule 400 unit PO QDAY 11/14/17 01/28/24 History metronidazole 0.75 % topical cream 1 applic topical BID #45 grams 09/25/22 01/28/24 Rx spironolactone 25 mg tablet 25 mg PO DAILY #90 tabs 04/11/23 01/28/24 Rx rosuvastatin 10 mg tablet 10 mg PO QDAY #90 tabs 01/29/24 Rx lisinopril 20 1 tab PO DAILY #90 TABLETS 03/24/24 Rx mg-hydrochlorothiazide 25 mg tablet metformin 500 mg tablet 500 mg PO DAILY #90 TABLETS 03/24/24 Rx omeprazole 20 mg capsule,delayed 20 mg PO DAILY #90 caps 04/14/24 Rx release colchicine 0.6 mg tablet 0.6 mg PO BID #30 tabs 05/02/24 05/02/24 Rx prednisone 20 mg tablet 40 mg (2 x 20 mg) PO DAILY 3 days 05/02/24 05/02/24 Rx #6 tabs Have you fallen in the past year?: No PFSH Medical History (Updated 05/02/24 @ 09:29 by ILIA Fall) Diabetes Fatty liver disease, nonalcoholic GERD (gastroesophageal reflux disease) Hyperlipemia Hypertension Arthritis Seasonal allergies Surgical History (Updated 01/28/24 @ 14:26 by Safia Garcia MA) Hx of cataract surgery History of loop electrical excision procedure (LEEP) History of tubal ligation History of wisdom tooth extraction History of appendectomy History of tonsillectomy Family History Mother Diabetes COPD (chronic obstructive pulmonary disease) Father Diabetes Hypertension Hyperlipemia Sister Diabetes Grandfather Cancer skin Grandmother Cancer CVA (cerebral vascular accident) Social History Smoking Status: Never smoker alcohol intake: never substance use type: does not use what type of physical activity do you participate in: none HPI HPI Details: MOI BLACK, is a 68 F who presents to the office today for gout -last attack December of 2019 -denies any high purine intake -sx started evening- joint fell sore and ached then during the night woke up with it swollen- hard to sleep -yesterday stayed off it all day and iced it, ibuprofen 1 every 6 hours then 2 at bedtime- ibuprofen 2 tabs at 0500 -no fever or chills -denies fall or injury ROS Const Constitutional: Positive for other (ROS negative x6 except what was placed in HPI) Exam Const General: cooperative and no acute distress Orientation: alert and oriented x3 Resp Effort Inspection: normal respiratory effort, able to speak in complete sentences and symmetric chest movement Auscultation: Bilateral: Clear to Auscultation, Left: Clear to Auscultation and Right: Clear to Auscultation Cardio Rate: regular rate Rhythm: regular rhythm Heart Sounds: S1 normal and S2 normal GI Auscultation: normal bowel sounds Palpation: soft and no hepatosplenomegaly Neuro General: patient alert, patient awake and patient oriented x3 Extrem Other: -right foot compared to the left foot - right foot with + swelling to the proximal phalanx, 1st metatarsal and medial cuneiform- soft tissue swelling, slight warmth- pain with the slightest palpation-decreased ROM r/t pain Psych Appearance: grossly normal Mental Status: mental status grossly normal Attitude: cooperative Thought Process: normal Thought Content: normal Judgment: judgment good Coding Level of Care Code Off vis,new,level 3 Diagnoses Acute gout involving toe of right foot, unspecified cause M10.9 Gout site: toe Gout etiology: unspecified cause Chronicity: acute Laterality: right Assessment and Plan Assessment and Plan (1) Gout: Status: Acute Qualifiers: Gout site: toe Gout etiology: unspecified cause Chronicity: acute Laterality: right Qualified Code(s): M10.9 - Gout, unspecified Plan: -take medic (more content not included)... Normal [facility] Comprehensive Metabolic Prof garret 01-28-2024 Albumin [Mass/Vol] 3.6 g/dL Normal 3.2-5.0 [facility] Comment on above: Performed By: #### L 735.6002, L500.8748 #### [facility] [place], [address] Albumin/Globulin [Mass ratio] 0.9 {ratio} Normal 0.9-2.4 [facility] Comment on above: Performed By: #### L 500.4050, L500.4100 #### [facility] [address] [place], [address] ALK P 60 U/L Normal 45-117 [facility] Comment on above: Performed By: #### L 500.4050, L500.4100 #### [facility] [address] [place], [address] ALT [Catalytic activity/Vol] 44 U/L Normal 13-56 [facility] Comment on above: Performed By: #### L 500.4050, L500.4100 #### [facility] [address] [place], [address] AST [Catalytic activity/Vol] 30 U/L Normal 15-37 [facility] Comment on above: Performed By: #### L 500.4050, L500.4100 #### [facility] [address] [place], [address] Bilirubin [Mass/Vol] 0.30 mg/dL Normal 0.20-1.00 [facility] Comment on above: Result Comment: For patients on eltrombopag therapy, use of Dimension [place] TBIL is not recommended. Performed By: #### L 500.4050, L500.4100 #### [facility] [address] [place], [address] BUN/CRE 12.9 RATIO Normal 10-20 [facility] Comment on above: Performed By: #### L 500.4050, L500.4100 #### [facility] [address] [place], [address] CA,Total 9.8 mg/dL Normal 8.5-10.1 [facility] Comment on above: Performed By: #### L 500.4050, [id number] #### [facility] [address] [place], [address] Chloride [Moles/Vol] 104 mmol/L Normal 98-107 [facility] Comment on above: Performed By: #### L 500.4050, L500.4100 #### [facility] [address] [place], [address] CO2 [Moles/Vol] 27.0 mmol/L Normal 21.0-32.0 [facility] Comment on above: Performed By: #### L 500.4050, L500.4100 #### [facility] [address] [place], [address] Creatinine [Mass/Vol] 0.93 mg/dL Normal 0.55-1.02 [facility] Comment on above: Result Comment: The validity of the calculated GFR GFRAA in patients over 70 years has not been determined. Clinical correlation is essential. Performed By: #### L 500.4050, L500.4100 #### [facility] [address] [place], [address] EST GFR - AA 78 mL/min Normal >60 [facility] Comment on above: Result Comment: Afri can Togolese GFR Calc Performed By: #### L 500.4050, L500.4100 #### [facility] [address] [place], [address] GAP 6 Normal 5-15 [facility] Comment on above: Performed By: #### L 500.4050, L500.4100 #### [facility] [address] [place], [address] GFR/1.73 sq M.predicted among non-blacks MDRD (S/P/Bld) [Vol rate/Area] 64 mL/min/{1.73_m2} Normal >60 [facility] Comment on above: Result Comment: Non- GFR Calc Performed By: #### L 500.4050, L500.4100 #### [facility] [address] [place], [address] Globulin (S) [Mass/Vol] 3.8 g/dL Normal 2.2-4.2 [facility] Comment on above: Performed By: #### L 500.4050, L500.4100 #### [facility] [address] [place], [address] Glucose [Mass/Vol] 133 mg/dL High 74-106 [facility] Comment on above: Result Comment: Fast ing Glucose result greater than or equal to 126 mg/dL suggests DIABETES MELLITUS per A.D.A. criteria. Performed By: #### L 500.4050, L500.4100 #### [facility] [address] [place], [address] Potassium [Moles/Vol] 4.0 mmol/L Normal 3.5-5.1 [facility] Comment on above: Performed By: #### L 500.4050, L500.4100 #### [facility] [address] [place], [address] Sodium [Moles/Vol] 137 mmol/L Normal 136-145 [facility] Comment on above: Performed By: #### L 500.4050, L500.4100 #### [facility] [address] [place], [address] T PROT 7.4 g/dL Normal 6.4-8.2 [facility] Comment on above: Performed By: #### L 500.4050, L500.4100 #### [facility] [address] [place], [address] Urea nitrogen [Mass/Vol] 12 mg/dL Normal 7-18 [facility] Comment on above: Performed By: #### L 500.4050, L500.4100 #### [facility] [address] [place], [address] Internal Medicine Office Vis iton 01-28-2024 Internal Medicine Office Visit [facility] [address] [place] [address] [place] [address] OFFICE VISIT Date of Service: 01/28/24 MR#: [id number] Acct: [id number] Name: MOI BLACK Rep #: [id number] : 1955 Provider: Dr. Oscar Diez own, DO Age/Sex: 68/F Location: [facility] Status: Signed Intake Vital Signs 05/24/23 12:23 01/28/24 14:26 Height 5 ft 5.4 in 5 ft 4 in Weight: 173 lb 174 lb BMI 28.4 29.8 BP 124/60 H 120/70 Blood Pressure Location Lt brachial Lt brachial Position Sitting Sitting Respiration 18 16 Pulse 92 87 Pulse Source Monitor Monitor Temp 97.5 F L 97.6 F L Temp Source Temporal Temporal Pulse Oximetry (%) 99 96 Oxygen Delivery Method room air room air Intake Visit Reasons: 6 M FU Chief Complaint: Follow up Flame Channeler Required: No Is patient in pain?: No Allergies Sulfa (Sulfonamide Antibiotics) Allergy (Severe, Verified 01/28/24 14:16) rash Medications ???Medication ???Instructions ???Recorded ???Confirmed ???Type cetrizine PO 11/14/17 01/28/24 History vitamin E 200 unit capsule 400 unit PO QDAY 11/14/17 01/28/24 History metronidazole 0.75 % topical cream 1 applic topical BID #45 grams 09/25/22 01/28/24 Rx metformin 500 mg tablet 500 mg PO QDAY #90 tabs 03/22/23 01/28/24 Rx lisinopril 20 1 tab PO QDAY #90 tabs 03/26/23 01/28/24 Rx mg-hydrochlorothiazide 25 mg tablet omeprazole 20 mg capsule,delayed 20 mg PO DAILY #90 caps 04/11/23 01/28/24 Rx release pravastatin 20 mg tablet 20 mg PO QDAY #90 tabs 04/11/23 01/28/24 Rx spironolactone 25 mg tablet 25 mg PO DAILY #90 tabs 04/11/23 01/28/24 Rx Have you fallen in the past year?: No PFSH Medical History Diabetes Fatty liver disease, nonalcoholic GERD (gastroesophageal reflux disease) Hyperlipemia Hypertension Arthritis Seasonal allergies Surgical History (Updated 01/28/24 @ 14:26 by Safia Garcia MA) Hx of cataract surgery History of loop electrical excision procedure (LEEP) History of tubal ligation History of wisdom tooth extraction History of appendectomy History of tonsillectomy Family History Mother Diabetes COPD (chronic obstructive pulmonary disease) Father Diabetes Hypertension Hyperlipemia Sister Diabetes Grandfather Cancer skin Grandmother Cancer CVA (cerebral vascular accident) Social History Smoking Status: Never smoker alcohol intake: never substance use type: does not use what type of physical activity do you participate in: none HPI HPI Chief Complaint: Follow up Details: MOI BLACK, is a 68 F who presents to the office today for a follow-up exam on her diabetes. She says she has been feeling quite well. She has no new complaints. Her appetite is good her weight is stable. ROS Const Constitutional: No body ache, chills, excessive sweating, fatigue, fever(s), frequent falls, headache(s), snoring, weakness, sleep problems or change in appetite Eyes Eyes: No blurry vision, change in vision, eye pain or Light sensitivity ENT ENT: No abnormal hearing, ear or mastoid pain, tinnitus, nasal congestion, headache(s), neck pain or sore throat Resp Respiratory: No cough, shortness of breath, snoring or wheezing Cardio Cardiology: No chest pain at rest, chest pain with exertion, excessive sweating, shortness of breath, dyspnea on exertion, lightheadedness, orthopnea or palpitations Gastro GI: No abdominal pain, change in bowel habits, constipation, cramping, diarrhea, nausea/dyspepsia or vomiting Genitourinary-Female: No burning urination, painful urination, urinary incontinence, urinary frequency, abnormal vaginal bleeding or pelvic pain Musc Musculoskeletal: No abnormal gait, joint pain, back pain, limited range of motion, neck pain or numbness Skin Skin: No dry skin, redness, lesions, itchy eyes, rash or wounds Neuro Neurology: No abnormal gait, abnormal hearing, weakness, frequent falls, headache(s), memory loss or numbness Psych Psychiatric: No anxiety, No change in appetite, No depression, No memory loss and No Thoughts of harming yourself/Others Endo Endocrine: No cold intolerance, excessive sweating, fatigue, flushing, heat intolerance, increased thirst/drinking or increased hunger Aller/Imm Allergy/Immunologic: No itchy eyes, seasonal allergy symptoms, hives or wheezing Chinmay/Lymp Hematologic/Lymphatic: No easy bleeding, easy bruising, enlarged lymph nodes or other Exam Const General: cooperative and healthy appearing Nutritional Appearance: overweight Orientation: oriented x3 HENMT Head: normal to inspection Ears: hearing grossly normal bilaterally Fac (more content not included)... Normal [facility] Lipid Profileon 01-28-2024 Cholesterol [Mass/Vol] 247 mg/dL High [facility] Comment on above: Result Comment: <200 mg/dL Desirable 200-240 mg/dL Borderline >240 mg/dL High Risk Performed By: #### L 500.4050, L500.4100 #### [facility] [address] [place], [address] Cholesterol in HDL [Mass/Vol] 40 mg/dL Normal [facility] Comment on above: Result Comment: The drugs N-Acetylcysteine and Metamizole may falsely depress this assay. Reference Range HDL <40 mg/dL Low HDL Cholesterol HDL >or= 60 mg/dL High HDL Cholesterol Performed By: #### L 500.4050, L500.4100 #### [facility] [address] [place], [address] Cholesterol in LDL [Mass/Vol] 131 mg/dL High 0-130 [facility] Comment on above: Performed By: #### L [id number], L500.4100 #### [facility] [address] [place], [address] Cholesterol in VLDL [Mass/Vol] 76 mg/dL High 5-40 [facility] Comment on above: Performed By: #### L [id number], [id number] #### [facility] [address] [place], [address] Triglyceride [Mass/Vol] 381 mg/dL High [facility] Comment on above: Result Comment: The drugs N-Acetylcysteine and Metamizole may falsely depress this assay. Serum Triglycerides Reference Interval Normal <150 mg/dL Borderline high 150 - 199 mg/dL High 200 - 499 mg/dL Very High > or = 500 mg/dL Performed By: #### L [id number], [id number] #### [facility] [address] [place], [place], [address] Basophil percentageOrdered B y: Oscar Brown on 04-11-2023 Bilirubin [Mass/Vol] 0.50 mg/dL 0.20-1.00 [facility] Comment on above: For patients on eltr ombopag therapy, use of Dimension [place] TBIL is not recommended. Chloride [Moles/Vol] 103 mmol/L 98-107 [facility] Cholesterol [Mass/Vol] 241 mg/dL <200 [facility] Comment on above: <200 mg/dL Desirable 200-240 mg/dL Borderline >240 mg/dL High Risk Glucose [Mass/Vol] 110 mg/dL 74-106 [facility] Comment on above: Fasting Glucose resu lt from 100 to 125 mg/dL suggests IMPAIRED HOMEOSTASIS per A.D.A. criteria. Potassium [Moles/Vol] 4.7 mmol/L 3.5-5.1 [facility] Protein [Mass/Vol] 8.2 g/dL 6.4-8.2 [facility] Sodium [Moles/Vol] 137 mmol/L 136-145 [facility] Triglyceride [Mass/Vol] 258 mg/dL <199 [facility] Comment on above: The drugs N-Acetylcy steine and Metamizole may falsely depress this assay.Serum Triglycerides Reference Interval Normal <150 mg/dL Borderline high 150 - 199 mg/dL High 200 - 499 mg/dL Very High > or = 500 mg/dL Laboratory - Chemistry and C hemistry - challengeOrdered By: Oscar Ordoñez on 04-11-2023 ALP [Catalytic activity/Vol] 60 U/L 45-117 [facility] ALT [Catalytic activity/Vol] 57 U/L 13-56 [facility] CO2 [Moles/Vol] 28.0 mmol/L 21.0-32.0 [facility] Globulin (S) [Mass/Vol] 4.4 g/dL 2.2-4.2 [facility] Urea nitrogen/Creatinine [Mass ratio] 15.7 mg/mg 10-20 [facility] - Hematology and Cell countson 04-11-2023 HbA1c (Bld) [Mass fraction] 6.8 % 4.2-6.3 [facility] No Panel InformationOrdered By: Oscar Ordoñez on 04-11-2023 Estimated GFR (MDRD) Amer 70 mL/min >60 [facility] Comment on above: GFR Calc Estimated GFR (MDRD) Non-Af Amer 58 mL/min >60 [facility] Comment on above: Non- GFR Calc Serum or plasma albumin danyelle urement (mass/volume)Ordered By: Oscar Ordoñez on 04-11-2023 Albumin [Mass/Vol] 3.8 g/dL 3.2-5.0 [facility] Serum or plasma albumin/glob ulin mass ratioOrdered By: Oscar Ordoñez on 04-11-2023 Albumin/Globulin [Mass ratio] 0.9 {ratio} 0.9-2.4 [facility] Serum or plasma calcium danyelle urement (mass/volume)Ordered By: Oscar Ordoñez on 04-11-2023 Calcium [Mass/Vol] 9.8 mg/dL 8.5-10.1 [facility] Serum or plasma cholesterol in HDL measurement (mass/volume)Ordered By: Oscar Ordoñez on 04-11-2023 Cholesterol in HDL [Mass/Vol] 42 mg/dL >40 [facility] Comment on above: The drugs N-Acetylcy steine and Metamizole may falsely depress this assay. Reference Range HDL <40 mg/dL Low HDL Cholesterol HDL >or= 60 mg/dL High HDL Cholesterol Serum or plasma cholesterol in VLDL measurement (mass/volume)Ordered By: Oscar Ordoñez on 04-11-2023 Cholesterol in VLDL [Mass/Vol] 52 mg/dL 5-40 [facility] Serum or plasma creatinine m easurement (mass/volume)Ordered By: Oscar Ordoñez on 04-11-2023 Creatinine [Mass/Vol] 1.02 mg/dL 0.55-1.02 [facility] Comment on above: The validity of the calculated GFR & GFRAA in patients over 70 years has not been determined. Clinical correlation is essential. Serum or plasma low density lipoprotein (LDL) cholesterol measurement (mass/volume)Ordered By: Oscar Ordoñez on 04-11-2023 Cholesterol in LDL [Mass/Vol] 147 mg/dL 0-130 [facility] Serum or plasma urea nitroge n measurement (mass/volume)Ordered By: Oscar Ordoñez on 04-11-2023 Urea nitrogen [Mass/Vol] 16 mg/dL 7-18 [facility] Thin prep Papanicolaou smear with manual screeningOrdered By: Oscar Ordoñez on 04-11-2023 Thin prep Papanicolaou smear with manual screening 39 U/L 15-37 [facility] Thin prep Papanicolaou smear with manual screening 6 5-15 [facility] Basophil percentageOrdered B y: Dr. Ordoñez on 06-19-2022 Bilirubin [Mass/Vol] 0.40 mg/dL 0.20-1.00 [facility] Comment on above: For patients on eltr ombopag therapy, use of Dimension [place] TBIL is not recommended. Chloride [Moles/Vol] 102 mmol/L 98-107 [facility] Glucose [Mass/Vol] 129 mg/dL 74-106 [facility] Comment on above: Fasting Glucose resu lt greater than or equal to 126 mg/dL suggests DIABETES MELLITUS per A.D.A. criteria. Potassium [Moles/Vol] 4.2 mmol/L 3.5-5.1 [facility] Comment on above: Slight Hemolysis, Re sult may be falsely increased. Protein [Mass/Vol] 8.3 g/dL 6.4-8.2 [facility] Sodium [Moles/Vol] 138 mmol/L 136-145 [facility] Laboratory - Chemistry and C hemistry - challengeOrdered By: Dr. Ordoñez on 06-19-2022 ALP [Catalytic activity/Vol] 61 U/L 45-117 [facility] ALT [Catalytic activity/Vol] 98 U/L 13-56 [facility] CO2 [Moles/Vol] 29.0 mmol/L 21.0-32.0 [facility] Globulin (S) [Mass/Vol] 4.4 g/dL 2.2-4.2 [facility] Urea nitrogen/Creatinine [Mass ratio] 11.8 mg/mg 10-20 [facility] No Panel InformationOrdered By: Dr. Ordoñez on 06-19-2022 Estimated GFR (MDRD) Amer 78 mL/min >60 [facility] Comment on above: GFR Calc Estimated GFR (MDRD) Non-Af Amer 64 mL/min >60 [facility] Comment on above: Non- GFR Calc Serum or plasma albumin danyelle urement (mass/volume)Ordered By: Dr. Ordoñez on 06-19-2022 Albumin [Mass/Vol] 3.9 g/dL 3.2-5.0 [facility] Serum or plasma albumin/glob ulin mass ratioOrdered By: Dr. Ordoñez on 06-19-2022 Albumin/Globulin [Mass ratio] 0.9 {ratio} 0.9-2.4 [facility] Serum or plasma calcium danyelle urement (mass/volume)Ordered By: Dr. Ordoñez on 06-19-2022 Calcium [Mass/Vol] 9.7 mg/dL 8.5-10.1 [facility] Serum or plasma creatinine m easurement (mass/volume)Ordered By: Dr. Ordoñez on 06-19-2022 Creatinine [Mass/Vol] 0.93 mg/dL 0.55-1.02 [facility] Comment on above: The validity of the calculated GFR & GFRAA in patients over 70 years has not been determined. Clinical correlation is essential. Serum or plasma urea nitroge n measurement (mass/volume)Ordered By: Dr. Ordoñez on 06-19-2022 Urea nitrogen [Mass/Vol] 11 mg/dL 7-18 [facility] Thin prep Papanicolaou smear with manual screeningOrdered By: Dr. Ordoñez on 06-19-2022 Thin prep Papanicolaou smear with manual screening 64 U/L 15-37 [facility] Comment on above: Slight Hemolysis, Re sult may be falsely increased. Thin prep Papanicolaou smear with manual screening 7 5-15 [facility] Whole blood hemoglobin A1c/t otal hemoglobin ratio (mass fraction)Ordered By: Dr. Ordoñez on 06-19-2022 HbA1c (Bld) [Mass fraction] 7.7 % 3.8-5.6 [facility] Comment on above: Normal < 5.7 % Predi abetic 5.7 - 6.4 % Diabetic >or= 6.5 % Please note range changes. Basophil percentageOrdered B y: Dr. Ordoñez on 03-14-2022 Bilirubin [Mass/Vol] 0.40 mg/dL 0.20-1.00 [facility] Comment on above: For patients on eltr ombopag therapy, use of Dimension [place] TBIL is not recommended. Chloride [Moles/Vol] 103 mmol/L 98-107 [facility] Cholesterol [Mass/Vol] 243 mg/dL <200 [facility] Comment on above: <200 mg/dL Desirable 200-240 mg/dL Borderline >240 mg/dL High Risk Glucose [Mass/Vol] 139 mg/dL 74-106 [facility] Comment on above: Fasting Glucose resu lt greater than or equal to 126 mg/dL suggests DIABETES MELLITUS per A.D.A. criteria. Potassium [Moles/Vol] 3.8 mmol/L 3.5-5.1 [facility] Protein [Mass/Vol] 7.6 g/dL 6.4-8.2 [facility] Sodium [Moles/Vol] 138 mmol/L 136-145 [facility] Triglyceride [Mass/Vol] 405 mg/dL <199 [facility] Comment on above: The drugs N-Acetylcy steine and Metamizole may falsely depress this assay. TRIGLYCERIDE IS GREATER THAN 400 mg/dL. LDL RESULT IS INVALID AND WILL NOT BE REPORTED.Serum Triglycerides Reference Interval Normal <150 mg/dL Borderline high 150 - 199 mg/dL High 200 - 499 mg/dL Very High > or = 500 mg/dL Laboratory - Chemistry and C hemistry - challengeOrdered By: Dr. Ordoñez on 03-14-2022 ALP [Catalytic activity/Vol] 68 U/L 45-117 [facility] ALT [Catalytic activity/Vol] 117 U/L 13-56 [facility] CO2 [Moles/Vol] 27.0 mmol/L 21.0-32.0 [facility] Globulin (S) [Mass/Vol] 4.0 g/dL 2.2-4.2 [facility] Urea nitrogen/Creatinine [Mass ratio] 11.6 mg/mg 03-15 [facility] No Panel InformationOrdered By: Dr. Ordoñez on 03-14-2022 Estimated GFR (MDRD) Amer 58 mL/min >60 [facility] Comment on above: GFR Calc Estimated GFR (MDRD) Non-Af Amer 48 mL/min >60 [facility] Comment on above: Non- GFR Calc Thyroid Stimulating Hormone (TSH) 1.26 uIU/mL 0.358-3.74 [facility] Serum or plasma albumin danyelle urement (mass/volume)Ordered By: Dr. Ordoñez on 03-14-2022 Albumin [Mass/Vol] 3.6 g/dL 3.2-5.0 [facility] Serum or plasma albumin/glob ulin mass ratioOrdered By: Dr. Ordoñez on 03-14-2022 Albumin/Globulin [Mass ratio] 0.9 {ratio} 0.9-2.4 [facility] Serum or plasma calcium danyelle urement (mass/volume)Ordered By: Dr. Ordoñez on 03-14-2022 Calcium [Mass/Vol] 9.4 mg/dL 8.5-10.1 [facility] Serum or plasma cholesterol in HDL measurement (mass/volume)Ordered By: Dr. Ordoñez on 03-14-2022 Cholesterol in HDL [Mass/Vol] 36 mg/dL >40 [facility] Comment on above: The drugs N-Acetylcy steine and Metamizole may falsely depress this assay. Reference Range HDL <40 mg/dL Low HDL Cholesterol HDL >or= 60 mg/dL High HDL Cholesterol Serum or plasma cholesterol in VLDL measurement (mass/volume)Ordered By: Dr. Ordoñez on 03-14-2022 Cholesterol in VLDL [Mass/Vol] TNP [facility] Comment on above: Test not performed Serum or plasma creatinine m easurement (mass/volume)Ordered By: Dr. Ordoñez on 03-14-2022 Creatinine [Mass/Vol] 1.21 mg/dL 0.55-1.02 [facility] Comment on above: The validity of the calculated GFR & GFRAA in patients over 70 years has not been determined. Clinical correlation is essential. Serum or plasma low density lipoprotein (LDL) cholesterol measurement (mass/volume)Ordered By: Dr. Ordoñez on 03-14-2022 Cholesterol in LDL [Mass/Vol] TNP [facility] Comment on above: Test not performed Serum or plasma urea nitroge n measurement (mass/volume)Ordered By: Dr. Ordoñez on 03-14-2022 Urea nitrogen [Mass/Vol] 14 mg/dL 12-11 [facility] Thin prep Papanicolaou smear with manual screeningOrdered By: Dr. Ordoñez on 03-14-2022 Thin prep Papanicolaou smear with manual screening 90 U/L [facility] Thin prep Papanicolaou smear with manual screening 8 10-08 [facility] Vital Signs Date Time Vital Sign Value Performing Clinician Faci lity 11-11-2024 12:57-0400 Body height 162.[address] Oscar Ordoñez DO Work Phone: [facility] 11-11-2024 12:57-0400 Body mass index (BMI) [Ratio] 30.5 kg/m2 Dr. Oscar Ordoñez DO Work Phone: [facility] 11-11-2024 12:57-0400 Body temperature 97.3 [degF] Dr. Oscar Ordoñez DO Work Phone: [facility] 11-11-2024 12:57-0400 Body weight 80.[address] Oscar Ordoñez DO Work Phone: [facility] 11-11-2024 12:57-0400 Diastolic blood pressure 76 mm[Hg] Dr. Oscar Ordoñez DO Work Phone: [facility] 11-11-2024 12:57-0400 Heart rate 68 /min Dr. Oscar Ordoñez DO Work Phone: [facility] 11-11-2024 12:57-0400 Respiratory rate 18 /min Dr. Oscar Ordoñez DO Work Phone: [facility] 11-11-2024 12:57-0400 SaO2% (BldA) [Mass fraction] 98 % Dr. Oscar Ordoñez DO Work Phone: [facility] 11-11-2024 12:57-0400 Systolic blood pressure 138 mm[Hg] Dr. Oscar Ordoñez DO Work Phone: [facility] 04-11-2023 10:26-0500 Body height 163.[address] Oscar Ordoñez Work Phone: [facility] 04-11-2023 10:26-0500 Body mass index (BMI) [Ratio] 29.5 kg/m2 Dr. Oscar Ordoñez Work Phone: [facility] 04-11-2023 10:26-0500 Body temperature 98.3 [degF] Dr. Oscar Ordoñez Work Phone: [facility] 04-11-2023 10:26-0500 Body weight 79.[address] Oscar Ordoñez Work Phone: [facility] 04-11-2023 10:26-0500 Diastolic blood pressure 74 mm[Hg] Dr. Oscar Ordoñez Work Phone: [facility] 04-11-2023 10:26-0500 Heart rate 72 /min Dr. Oscra Ordoñez Work Phone: [facility] 04-11-2023 10:26-0500 Respiratory rate 16 /min Dr. Oscar Ordoñez Work Phone: [facility] 04-11-2023 10:26-0500 SaO2% (BldA) [Mass fraction] 98 % Dr. Oscar Ordoñez Work Phone: [facility] 04-11-2023 10:26-0500 Systolic blood pressure 126 mm[Hg] Dr. Oscar Ordoñez Work Phone: [facility] 06-19-2022 08:59-0500 Body height 163.[address] Oscar Ordoñez Work Phone: [facility] 06-19-2022 08:59-0500 Body mass index (BMI) [Ratio] 29.9 kg/m2 Dr. Oscar Ordoñez Work Phone: [facility] 06-19-2022 08:59-0500 Body temperature 96.9 [degF] Dr. Oscar Ordoñez Work Phone: [facility] 06-19-2022 08:59-0500 Body weight 80.[address] Oscar Ordoñez Work Phone: [facility] 06-19-2022 08:59-0500 Diastolic blood pressure 96 mm[Hg] Dr. Oscar Ordoñez Work Phone: [facility] 06-19-2022 08:59-0500 Heart rate 81 /min Dr. Oscar Ordoñez Work Phone: [facility] 06-19-2022 08:59-0500 Respiratory rate 18 /min Dr. Oscar Ordoñez Work Phone: [facility] 06-19-2022 08:59-0500 SaO2% (BldA) [Mass fraction] 99 % Dr. Oscar Ordoñez Work Phone: [facility] 06-19-2022 08:59-0500 Systolic blood pressure 156 mm[Hg] Dr. Oscar Ordoñez Work Phone: [facility] 03-14-2022 15:34-0400 Body height 163.[address] Oscar Ordoñez Work Phone: [facility] Work Phone: 03-14-2022 15:34-0400 Body mass index (BMI) [Ratio] 30.7 kg/m2 Dr. Oscar Ordoñez Work Phone: [facility] 03-14-2022 15:34-0400 Body temperature 97.8 [degF] Dr. Oscar Ordoñez Work Phone: [facility] 03-14-2022 15:34-0400 Body weight 82.[address] Oscar Ordoñez Work Phone: [facility] 03-14-2022 15:34-0400 Diastolic blood pressure 76 mm[Hg] Dr. Oscar Ordoñez Work Phone: [facility] 03-14-2022 15:34-0400 Heart rate 72 /min Dr. Oscar Ordoñez Work Phone: [facility] 03-14-2022 15:34-0400 Respiratory rate 16 /min Dr. Oscar Ordoñez Work Phone: [facility] 03-14-2022 15:34-0400 SaO2% (BldA) [Mass fraction] 96 % Dr. Oscar Ordoñez Work Phone: [facility] 03-14-2022 15:34-0400 Systolic blood pressure 128 mm[Hg] Dr. Oscar Ordoñez Work Phone: [facility] 12-15-2021 13:46-0400 Body height 163.[address] Oscar Ordoñez Work Phone: [facility] Work Phone: 12-15-2021 13:46-0400 Body mass index (BMI) [Ratio] 30.9 kg/m2 Dr. Oscar Ordoñez Work Phone: [facility] Work Phone: 12-15-2021 13:46-0400 Body temperature 97 [degF] Dr. Oscar Ordoñez Work Phone: [facility] Work Phone: 12-15-2021 13:46-0400 Body weight 83.[address] Oscar Ordoñez Work Phone: [facility] Work Phone: 12-15-2021 13:46-0400 Diastolic blood pressure 76 mm[Hg] Dr. Oscar Ordoñez Work Phone: [facility] Work Phone: 12-15-2021 13:46-0400 Heart rate 81 /min Dr. Oscar Ordoñez Work Phone: [facility] Work Phone: 12-15-2021 13:46-0400 Respiratory rate 14 /min Dr. Oscar Ordoñez Work Phone: [facility] Work Phone: 12-15-2021 13:46-0400 SaO2% (BldA) [Mass fraction] 98 % Dr. Oscar Ordoñez Work Phone: [facility] Work Phone: 12-15-2021 13:46-0400 Systolic blood pressure 118 mm[Hg] Dr. Oscar Ordoñez Work Phone: [facility] Work Phone: Encounters Encounter Date Encounter Type Care Provider Facility Start: 11-11-2024 End: 11-11-[address] Oscar Cortez DO -[facility] Work Phone: Start: 11-11-2024 End: 11-11-[address] Oscar Ordoñez DO Work Phone: [facility] Work Phone: Start: 05-02-2024 End: 05-02-2024 ambulatory Oscar Ordoñez Facility:[facility] Start: 01-28-2024 End: 01-28-2024 ambulatory Oscar Ordoñez Facility:[facility] Start: 01-28-2024 End: 01-28-2024 ambulatory Oscar Ordoñez Facility:[facility] Start: 04-24-2023 End: 04-24-[address] Oscar Ordoñez Work Phone: [facility] Work Phone: Start: 04-24-2023 End: 04-24-[address] Oscar Ordoñez Work Phone: [facility] Work Phone: Start: 04-11-2023 End: 04-11-[address] Oscar Ordoñez Work Phone: [facility] Work Phone: Start: 04-11-2023 End: 04-11-[address] Oscar Ordoñez Work Phone: [facility] Start: 04-11-2023 End: 04-11-[address] Oscar Ordoñez Work Phone: [facility] Work Phone: Start: 06-19-2022 End: 06-19-[address] Oscar Ordoñez Work Phone: [facility] Work Phone: Start: 06-19-2022 End: 06-19-[address] Oscar Ordoñez Work Phone: [facility] Start: 03-14-2022 End: 03-14-[address] Oscar Ordoñez Work Phone: [facility] Work Phone: Start: 03-14-2022 End: 03-14-[address] [facility] [place] Start: 03-14-2022 End: 03-14-[address] Oscar Ordoñez Work Phone: [facility] Start: 12-15-2021 End: 12-15-[address] Oscar Ordoñez Work Phone: [facility] Start: 12-15-2021 End: 12-15-[address] Oscar Ordoñez Work Phone: [facility] Procedures Date Procedure Procedure Detail Performing Clinician Start: 04-24-2023 Screening mammography Teresa Ordoñez Work Phone: Start: 12-15-2021 Radiologic examinati on of knee Dr. Oscar Ordoñez Work Phone: Start: 12-15-2021 X-ray of lumbar spin e, two or three views Dr. Osacr Ordoñez Work Phone: Start: 12-15-2021 Plain x-ray of pelvi s and lower extremity Dr. Oscar Ordoñez Work Phone: Plan of Treatment Date Care Activity Detail Author MG Breast - bilateral Screening [facility] Immunizations Immunization Date Immunization Notes Care Provider Fa chika 03-26-2021 Abiolaid (Moderna) Dr. Oscar Ordoñez Work Phone: [facility] 03-26-2021 influenza, injectabl e, quadrivalent, preservative free Dr. Oscar Ordoñez Work Phone: [facility] 03-26-2021 influenza, seasonal, injectable Dr. Oscar Ordoñez Work Phone: [facility] 09-01-2020 Abiolaid (Moderna) Dr. Oscar Ordoñez Work Phone: [facility] 08-04-2020 Abiolaid (Moderna) Dr. Oscar Ordoñez Work Phone: [facility] 03-17-2020 influenza, injectabl e, quadrivalent, preservative free Dr. Oscar Ordoñez Work Phone: [facility] 03-17-2020 influenza, seasonal, injectable Dr. Oscar Ordoñez Work Phone: [facility] 03-17-2020 pneumococcal polysaccharide vaccine, [address] Oscar Ordoñez Work Phone: [facility] 04-01-2018 influenza, injectabl e, quadrivalent, preservative free Dr. Oscar Ordoñez Work Phone: [facility] 04-01-2018 influenza, seasonal, injectable Dr. Oscar Ordoñez Work Phone: [facility] Payers Date Payer Category Payer Self-pay [id number] 2023 Medicare [id number] [id number] [id number] Unknown [id number] Unknown [id number] [id number] [id number] Unknown [id number] Social History Date Type Detail Facility Start: 12-15-2021 End: 04-11-2023 Tobacco smoking status MIIS Unknown if ever smoked [facility] Start: 1955 Sex Assigned At Female [facility] Start: 05[facility]02-2024 [facility] Evaluation note Note Date & Type Note Facility Evaluation note Diagnosis Onset Date Back pain noneactive Hip pain noneactive Knee pain noneactive [facility] Work Phone: Evaluation note Note Date & Type Note Facility Evaluation note Diagnosis Onset Date Back pain noneactive Hip pain noneactive Knee pain noneactive Hair loss acute Diabetes chronic Hyperlipemia chronic Hypertension chronic Rosacea [facility] Work Phone: Evaluation note Note Date & Type Note Facility Evaluation note Diagnosis Onset Date Hair loss acute Diabetes chronic Hyperlipemia chronic Hypertension chronic Rosacea chronic Hair loss acute Prediabetes acute Fatty liver disease, nonalcoholic chronic Hyperlipemia chronic Hypertension chronic Rosacea [facility] Work Phone: Evaluation note Note Date & Type Note Facility Evaluation note Diagnosis Onset Date Diabetes chronic Hyperlipemia chronic Hypertension chronic Rosacea [facility] Work Phone: Evaluation note Note Date & Type Note Facility Evaluation note Diagnosis Onset Date Resolution Hair loss acute November 11 12:41pm Diabetes chronic November 11 12:41pm Hyperlipemia chronic November 11, 025 12:41pm Hypertension chronic November 11 025 12:41pm Rosacea chronic November 11 12:41pm [facility] Work Phone: Reason for referral (narrative) Note Date & Type Note Facility Reason for referral (narrative) No reason for referral information available [facility] Work Phone: Chief Complaint and Reason for Visit Chief Complaint PAIN ACROSS BACK, IN HIP, DOWN LEG EORDERS-Low back pain-left hip pain-left knee pain Reason for Visit Back pain Hip pain Knee pain Chief Complaint PAIN ACROSS BACK, IN HIP, DOWN LEG EORDERS-Low back pain-left hip pain-left knee pain WELLNESS Reason for Visit Back pain Hip pain Knee pain Hair loss Diabetes Hyperlipemia Hypertension Rosacea Chief Complaint WELLNESS FU Reason for Visit Hair loss Diabetes Hyperlipemia Hypertension Rosacea Hair loss Prediabetes Fatty liver disease, nonalcoholic Hyperlipemia Hypertension Rosacea Chief Complaint 6 M FU Reason for Visit Diabetes Hyperlipemia Hypertension Rosacea Chief Complaint 6 M FU SCREENING Reason for Visit Diabetes Hyperlipemia Hypertension Rosacea Chief Complaint Admit Date 6 M FU November 11, 2024 12:4 1pm Reason for Visit Admit Date Hair loss November 11, 2024 12:4 1pm Diabetes November 11, 2024 12:4 1pm Hyperlipemia November 11, 2024 12:4 1pm Hypertension November 11, 2024 12:4 1pm Rosacea November 11, 2024 12:4 1pm Family History No Family History Records Found Relationship Condition Age at Onset Recorded Date/T roberto mother Diabetes mellitus Unknown Chronic obstructive pulmonary disease Unk nown father Diabetes mellitus Unknown Hypertension Unknown Hyperlipidemia Unknown sister Diabetes mellitus Unknown grandfather Malignant neoplasm Unknown grandmother Malignant neoplasm Unknown Cerebrovascular accident (CVA) Unknown Summary Purpose Advance Directives No Advanced Directives Records Found Additional Source Comments Goals (unrecognized section and content) Goals may be documented in a n alternate sectionGoals may be documented in an alternate sectionGoals may be documented in an alternate sectionGoals may be documented in an alternate sectionGoals may be documented in an alternate sectionGoals may be documented in an alternate section Care Teams (unrecognized sec tion and content) Team Status: Active Member Role Status Dates Dr. Oscar Ordoñez , DO Family Provider Active Dr. Oscar Ordoñez , DO Primary Care Provider Active Team Status: Inactive Member Role Status Dates Dr. Oscar Ordoñez , DO Primary Care Pr ovider, Attending Provider, Referring Provider Active Team Status: Inactive Member Role Status Dates Dr. Oscar Ordoñez , DO Primary Care Provider Active Start: November 11, 2024 End: November 11, 2024 Dr. Oscar Ordoñez , DO Attending Provider Active Start: November 11, 2024 End: November 11, 2024 Dr. Oscar Ordoñez , DO Referring Provider Active Start: November 11, 2024 End: November 11, 2024 INFORMATION SOURCE (unrecogn ized section and content) DATE CREATED AUTHOR 11/14/2024 [facility] FOR RECORDS PERTAINING TO PATIENTS WHO ARE OR HAVE BEEN ENROLLED IN A CHEMICAL DEPENDENCY/SUBSTANCEABUSE PROGRAM, SOME INFORMATION MAY BE OMITTED. This clinical summary was aggregated from multiple sources. Caution should be exercised in using it in the provision of clinical care. This summary normalizes information from multiple sources, and as a consequence, information in this document may materially change the coding, format and clinical context of patient data. In addition, data may be omitted in some cases. CLINICAL DECISIONS SHOULD BE BASED ON THE PRIMARY CLINICAL RECORDS. [facility]. provides no warranty or guarantee of the accuracy or completeness of information in this document.
== END | disposition home or self-care (01) ==
PROVIDERS: PCP Family Medicine; Referring Provider Family Medicine; Visit Provider Family Medicine
DX: N63.11 Unspecified lump in the right breast, upper outer quadrant (principal)
CPT/HCPCS: 76642; 77062; 77066; G0279